=== PATIENT | female | born 1955 | race American Indian/Alaskan Native ===

== ENCOUNTER 2017-02-09 09:14 | Outpatient (CLI) | payer OTHER ==
--- NOTE | 2017-02-09 10:21 | Mammography Report ---
BILATERAL MAMMOGRAM: FINDINGS: There are scattered fibroglandular densities (approximately 25%-50% glandular). No mass, distortion, suspicious calcification, or skin change is seen. No significant change when compared to prior exams in November 2015 and February 2014. CAD was utilized. IMPRESSION: Negative mammogram. There is no mammographic evidence of malignancy. RECOMMENDATION: Follow-up per ACS guidelines. BI-RADS CATEGORY: 1 = Negative ACR BI-RADS MAMMOGRAPHIC CODES: 0 = Needs additional imaging evaluation; 1 = Negative; 2 = Benign; 3 = Probably benign; 4 = Suspicious; 5 = Malignant; 6 = Known biopsy-proven malignancy COMMENT: 1. Dense breast tissue, i.e., adenosis, fibrocystic changes, etc., may obscure an underlying neoplasm. 2. Approximately 10% of cancers are not detected with mammography. 3. A negative mammography report should not delay biopsy if a clinically suspicious mass is present. COMMENT: Patient follow-up letters are generated in [employer].
== END 2017-02-09 09:15 | disposition home or self-care (01) ==
LOC: SPVWC 09:14
PROVIDERS: ATTEND Obstetrics & Gynecology
DX: Z12.31 Encounter for screening mammogram for malignant neoplasm of breast (principal)
CPT/HCPCS: 77067; G0202

== ENCOUNTER 2018-09-28 07:30 | Inpatient (IN) | payer OTHER ==
[2018-10-19] MEDS ORDERED: FLAGYL 500 MG/100 ML 500 MG/100 ML BAG IV NR ×2 (06:00→07:00)
[2018-10-19] MEDS ORDERED: ANCEF/STERILE WATER 2 GM/20 ML IV NR (06:00)
[2018-10-19] MEDS ORDERED: REGLAN IV PRN (06:43)
[2018-10-19] MEDS ORDERED: APRESOLINE IV PRN (06:43)
[2018-10-19] MEDS ORDERED: ZOFRAN IV PRN ×2 (06:43→09:37)
[2018-10-19] MEDS ORDERED: NORCO PO PRN (06:43)
[2018-10-19] MEDS ORDERED: MORPHINE IV PRN (06:43)
[2018-10-19] MEDS ORDERED: LOVENOX SUB-Q NR (07:00)
[2018-10-19] MEDS ORDERED: ANCEF/STERILE WATER 2 GM/20 ML 2 GM/20 ML SYRINGE IV NR (07:00)
[2018-10-19] MEDS ORDERED: TRANSDERM-SCOP TD SCH (07:00)
[2018-10-19] MEDS ORDERED: SUBLIMAZE IV PRN (09:37)
--- NOTE | 2018-10-19 09:38 | Anesthesia Day of Surgery ---
Anesthesia Day of Surgery - Day of Surgery Patient Examined: Yes Patient H&P Reviewed: Yes Patient is NPO: Yes
--- NOTE | 2018-10-19 09:46 | Anesthesia Consultation ---
Anesthesia Consult and Med Hx Date of service: 10/19/18 - Airway Anesthetic Teeth Evaluation: Chipped, Bridges ROM Head & Neck: Adequate Mental/Hyoid Distance: Adequate Mallampati Class: Class II Intubation Access Assessment: Good - Pre-Operative Health Status ASA Pre-Surgery Classification: ASA3 Proposed Anesthetic Plan: General - Pulmonary Hx Smoking: Yes (quit 1989) - Cardiovascular System Hx Hypertension: Yes (NST [id number]; EF .74) Hx Heart Murmur: Yes - Central Nervous System Hx Psychiatric Problems: Yes (Anxiety) - Gastrointestinal Hx Gastroesophageal Reflux Disease: Yes - Other Systems Hx Cancer: Yes (at the age 28, cervical CA, s/p hysterectomy, chemo, radiation)
[2018-10-19] MEDS ORDERED: LOVENOX SUB-Q SCH (10:00)
[2018-10-19] MEDS ORDERED: VERSED IV NR (10:00)
[2018-10-19] MEDS: LACTATED RINGERS 1,000 ML IV SCH ×2 (10:20→17:08)
[2018-10-19] MEDS ORDERED: SUBLIMAZE ONE (10:57)
[2018-10-19] MEDS ORDERED: DIPRIVAN 10 MG/ML IV ONE (10:57)
[2018-10-19] MEDS ORDERED: MARCAINE-EPI 0.5%-1:200,000 INFILTRATI ONE ×2 (11:23→13:15)
[2018-10-19] MEDS ORDERED: XYLOCAINE 1% 20 mL ONE (11:23)
[2018-10-19] MEDS ORDERED: ZEMURON IV ONE (12:29)
[2018-10-19] MEDS ORDERED: ROBINUL ONE (12:29)
[2018-10-19] MEDS ORDERED: DECADRON ONE (12:29)
[2018-10-19] MEDS ORDERED: QUELICIN ONE (12:29)
[2018-10-19] MEDS ORDERED: ZOFRAN ONE (12:29)
[2018-10-19] MEDS ORDERED: XYLOCAINE 1% 20 mL INFILTRATI ONE (13:15)
[2018-10-19] MEDS ORDERED: NACL 0.9% IR ONE ×2 (13:16)
[2018-10-19] MEDS ORDERED: BRIDION IV ONE (13:27)
[2018-10-19] MEDS: DILAUDID IV PRN ×3 (14:10→21:25)
--- NOTE | 2018-10-19 17:09 | Post Anesthesia Evaluation ---
- Post Anesthesia Evaluation Patient Participated: Yes Airway Patent: Yes Stable Respiratory Function: Yes Nausea/Vomiting: No Temp > 96.8F: Yes Pain Manageable: Yes Adequeate Hydration: Yes Anesthesia Complications: No Block Receding Appropriately: Yes
--- NOTE | 2018-10-19 17:29 | Operative Report ---
SURGEON: Jaycob Doyle MD RING FACER: Vanessa Carrillo MD Fellow; Jasmyn Osuna MD [facility]. PREOPERATIVE DIAGNOSIS: Morbid obesity. POSTOPERATIVE DIAGNOSES: 1. Extensive adhesions. 2. Morbid obesity. OPERATION PROCEDURE: 1. Laparoscopic lysis of adhesions, greater than 30 minutes. 2. Laparoscopic sleeve gastrectomy. 3. Laparoscopic hiatal hernia repair. 4. Repair of serosal injury ANESTHESIA: General endotracheal anesthesia. SPECIMENS: Gastric remnant. COMPLICATIONS: Intraoperative serosal injury requiring repair. BLEEDING: Less than 15 mL. INDICATIONS: The patient is a 63-year-old female with a history of morbid obesity. She has had multiple open abdominal operations. She has undergone a preoperative bariatric workup and presents for her planned operation. The risks, complications and alternatives were discussed with the patient and informed consent was obtained. DESCRIPTION OF PROCEDURE: The patient was brought to the operating room where she was placed in the supine position and underwent general endotracheal intubation. She was prepped and draped in the usual sterile fashion and a timeout was called to ensure proper patient, indication, and operation. She received preoperative antibiotics and DVT prophylaxis. A small stab incision was made at the left upper quadrant and a Veress needle was inserted with insufflation pressure was achieved to 15 mmHg. Intra-abdominal access was gained via a 5 mm optical trocar from the left lateral side of the abdomen. On intra-abdominal view, there was no injury from the Veress needle. She was noted to have extensive adhesions to the anterior abdominal wall, localized mostly in the midline from a prior open exploratory laparotomy. Under direct visualization, a 5 mm trocar was placed in the right lateral quadrant and left lateral quadrant. The adhesions were taken down using a LigaSure device. Once they were cleared, a 15 mm trocar was placed in the supraumbilical region. On closer inspection, there was noted to be a thermal injury of the small bowel that was adherent to the anterior abdominal wall. This was not a gdmmfzi-huw-uyzexma injury. Adhesiolysis took greater than 30 minutes. After clearing enough for exposure, an additional 5 mm trocar was placed in the subxiphoid place and the liver retractor was inserted. The patient was then repositioned in reverse Trendelenburg. A hiatal dissection was first done revealing a small hiatal hernia. The angle of His was dissected free and the gastroesophageal fat pad was taken off. After this, the greater curvature of the stomach was from the gastrocolic ligament using the LigaSure device. There was minor bleeding on the greater omental side at the lower portion of the greater curvature. This was controlled with the LigaSure device. The stomach was then fully mobilized and to include the short gastrics as well as posteriorly. An anterior cruroplasty was done with 0 Surgidac suture and then Anesthesia placed a 40-Telugu bougie with my nurse's assistant and a sleeve gastrectomy was performed utilizing several staple loads. The insufflation pressures were decreased and the staple line was cauterized after each fire load for hemostasis. After this, the bougie was removed and the staple line was reinspected again for hemostasis. Next, the left lateral port was exchanged for a 12 mm trocar and the thermal injury to the small bowel was repaired with a 0 Surgidac suture in interrupted fashion. After this, the gastric remnant was removed from the umbilical port site. The fascia was closed with #1 PDS using a Gabino-Abimael under direct visualization. All the air was desufflated. The ports were removed. Additional local was injected and the wounds were closed with 4-0 Monocryl. Sterile bandages were placed over top. The patient tolerated the procedure with no immediate complications and was extubated and left the operating room in stable condition. Counts were correct. FINDINGS: Small hiatal hernia. Extensive adhesions of the omentum and small bowel to the anterior abdominal wall. A small thermal injury to the small bowel, repaired with a suture. JOB# [id number] MARGIE/CAT MCCLAIN
[2018-10-19] MEDS: MYLICON PO PRN (18:21)
[2018-10-19] MEDS: TORADOL IV SCH (20:28)
[2018-10-20] MEDS: DILAUDID IV PRN (01:02)
[2018-10-20] MEDS: TORADOL IV SCH ×3 (02:25→08:11)
[2018-10-20 04:42] LABS: Basophils % (Auto) 0.3 % (0.0-1.8); Hematocrit 29.9 % (30.3-42.9); Hemoglobin 10.1 gm/dl (10.1-14.3); Lymphocytes # (Auto) 2.6 K/mm3 (1.2-5.4); Lymphocytes % (Auto) 21.4 % (13.4-35.0); Mean Corpuscular HGB Conc 34 % (30-34); Mean Corpuscular Volume 85 fl (79-97); Monocytes # (Auto) 0.6 K/mm3 (0.0-0.8); Monocytes % (Auto) 5.3 % (0.0-7.3); Platelet Count 324 K/mm3 (140-440); Red Blood Count 3.53 M/mm3 (3.65-5.03); Red Cell Distribution Width 14.7 % (13.2-15.2)
[2018-10-20 04:53] LABS: BUN/Creatinine Ratio 17; Blood Urea Nitrogen 10 mg/dL (7-17); Calcium 8.7 mg/dL (8.4-10.2); Hemolysis Index 22
[2018-10-20] MEDS: MYLICON PO PRN (06:18)
--- NOTE | 2018-10-20 06:53 | Discharge Summary ---
Providers - Providers Date of Admission: 10/19/18 07:19 Date of discharge: 10/20/18 Attending physician: SEKOU DOYLE Primary care physician: LISSA CHAUDHRY Hospitalization Reason for admission: postop Condition: Good Procedures: 10/19/18: Laparoscopic sleeve gastrectomy Hospital course: 63F admitted after her operation for routine postop care. She was managed on the general surgical floor, ambulated, tolerated a CLD, pain under control, and was dc home in stable condition. Disposition: DC-01 TO HOME OR SELFCARE Core Measure Documentation - Palliative Care Palliative Care/ Comfort Measures: Not Applicable - Core Measures Any of the following diagnoses?: none - VTE Discharge Requirements Deep Vein Thrombosis/Pulmonary Embolism Present on Admission: No - Acute OR Discharge Requirements Aspirin at discharge: Yes - Heart Failure Discharge Requirements ЕЛЕНА/ARB for LVSD if EF <40%: Not Applicable - Stroke Discharge Requirements Statin for LDL = or >70 mg/dl on DC: Not Applicable Exam - Physical Exam Narrative exam: Gen: AAO, NAD Heart: RRR Lungs: CTAB Abd: MO, soft, NT, ND. Bandages c/d/i. Ext: No LE edema - Constitutional Vitals: Temp Pulse Resp BP Pulse Ox 98.8 F 79 18 123/57 99 10/20/18 04:11 10/20/18 04:11 10/20/18 04:11 10/20/18 04:11 10/20/18 04:11 Plan Diet: clear liquids Wound: keep clean and dry Special Instructions: no heavy lifting Additional Instructions: Fu as scheduled with Dr Doyle Follow up with: LISSA CHAUDHRY MD [Primary Care Provider] - 7 Days
[2018-10-20] MEDS ORDERED: LOVENOX SUB-Q SCH (10:00)
[2018-10-20] MEDS ORDERED: COZAAR PO SCH (10:00)
[2018-10-20] MEDS ORDERED: HCTZ PO SCH (10:00)
[2018-10-20 12:20] VITALS: BP 101/55
== END 2018-10-20 13:00 | disposition home or self-care (01) | DRG 621 ==
LOC: 3A 10-19 07:19 → 3B-SURG 10-19 14:58
PROVIDERS: ADMIT Specialist; ATTEND Specialist
PROC: 0DB64Z3 Excision of Stomach, Percutaneous Endoscopic Approach, Vertical (ICD-10-PCS; principal; 2018-10-19)
PROC: 0DNW4ZZ Release Peritoneum, Percutaneous Endoscopic Approach (ICD-10-PCS; 2018-10-19)
PROC: 0DN84ZZ Release Small Intestine, Percutaneous Endoscopic Approach (ICD-10-PCS; 2018-10-19)
PROC: 0BQT4ZZ Repair Diaphragm, Percutaneous Endoscopic Approach (ICD-10-PCS; 2018-10-19)
PROC: 0DQ80ZZ Repair Small Intestine, Open Approach (ICD-10-PCS; 2018-10-19)
DX: E66.01 Morbid (severe) obesity due to excess calories (principal); I10 Essential (primary) hypertension; M54.2 Cervicalgia; M54.9 Dorsalgia, unspecified; F41.9 Anxiety disorder, unspecified; I49.9 Cardiac arrhythmia, unspecified; K66.0 Peritoneal adhesions (postprocedural) (postinfection); K21.9 Gastro-esophageal reflux disease without esophagitis; K44.9 Diaphragmatic hernia without obstruction or gangrene; Z90.49 Acquired absence of other specified parts of digestive tract; Z82.49 Family history of ischemic heart disease and other diseases of the circulatory system; Z83.3 Family history of diabetes mellitus; Z82.61 Family history of arthritis; Z82.3 Family history of stroke; Z81.8 Family history of other mental and behavioral disorders; Z92.3 Personal history of irradiation; Z92.21 Personal history of antineoplastic chemotherapy; Z85.41 Personal history of malignant neoplasm of cervix uteri; Z86.73 Personal history of transient ischemic attack (TIA), and cerebral infarction without residual deficits; Z68.42 Body mass index [BMI] 45.0-49.9, adult; Y93.89 Activity, other specified; Y99.8 Other external cause status
CPT/HCPCS: 36415; 80048; 85025; 88307; G0378; A4217; J0330; J0690; J1100; J1170; J1650; J1885; J2250; J2405; J2704; J3010; J7120

== ENCOUNTER 2018-10-12 06:05 | Day surgery (SDC) | payer OTHER ==
--- NOTE | 2018-10-11 12:19 | Anesthesia Consultation ---
Anesthesia Consult and Med Hx Date of service: 10/11/18 - Airway Anesthetic Teeth Evaluation: Chipped (upper back), Caps, Partials (upper left, cemented in) ROM Head & Neck: Adequate Mental/Hyoid Distance: Adequate Mallampati Class: Class III Intubation Access Assessment: Possibly Difficult - Pre-Operative Health Status ASA Pre-Surgery Classification: ASA3 Proposed Anesthetic Plan: General, MAC - Pulmonary Hx Smoking: Yes (quit 1989) - Cardiovascular System Hx Hypertension: Yes - Central Nervous System Hx Back Pain: Yes (hips, knees arthritis) - Gastrointestinal Hx Gastroesophageal Reflux Disease: Yes - Other Systems Hx Cancer: Yes (at the age 28, cervical CA, s/p hysterectomy, chemo, radiation) Hx Obesity: Yes (Morbid obesity)
[2018-10-12] MEDS ORDERED: NACL 0.9% 1000 ML 1,000 ML IV SCH (08:00)
--- NOTE | 2018-10-12 08:02 | Anesthesia Day of Surgery ---
Anesthesia Day of Surgery - Day of Surgery Patient Examined: Yes Patient H&P Reviewed: Yes Patient is NPO: Yes
[2018-10-12] MEDS ORDERED: VERSED IV ONE (08:08)
[2018-10-12] MEDS ORDERED: DIPRIVAN 10 MG/ML IV ONE (08:08)
[2018-10-12] MEDS ORDERED: WATER FOR IRRIG STERILE IR ONE (08:12)
[2018-10-12 09:01] VITALS: BP 102/59
--- NOTE | 2018-10-12 10:19 | Operative Report ---
SURGEON: Jaycob Doyle MD. PATTERNMAKER BENCH: Vanessa Carrillo MD PREOPERATIVE DIAGNOSES: 1. Morbid obesity. 2. Dyspepsia. POSTOPERATIVE DIAGNOSES: 1. Gastritis. 2. Mild duodenitis. PROCEDURE: Esophagogastroduodenoscopy. ANESTHESIA: MAC. COMPLICATIONS: None. SPECIMENS: None. BLEEDING: None. INDICATIONS: The patient is a 62-year-old female with a history of morbid obesity. She is here for a preoperative EGD in preparation for her weight loss surgery. Informed consent was obtained. DESCRIPTION OF PROCEDURE: The patient was brought to the GI suite where she was placed in the left lateral decubitus position and underwent MAC anesthesia. A bite block was placed and a timeout was called. A standard adult gastroscope was inserted into the oropharynx, down the esophagus, into the stomach. The patient was noted to have mild gastritis of the antrum. On intubation for pylorus, she was noted to have a mild duodenitis in the duodenal bulb. The gastroscope was retroflexed. She had no hiatal hernia. With this, there were no other lesions. The air was suctioned out. The gastroscope was removed. The patient tolerated the procedure well with no immediate complications and was transferred to the PACU in stable condition. [facility] [place]# [id number] MARGIE/CAT
== END 2018-10-12 06:06 | disposition home or self-care (01) ==
LOC: GIO 06:05
PROVIDERS: ATTEND Specialist
DX: K29.70 Gastritis, unspecified, without bleeding (principal); K29.80 Duodenitis without bleeding; K21.9 Gastro-esophageal reflux disease without esophagitis; K30 Functional dyspepsia; E66.01 Morbid (severe) obesity due to excess calories; I10 Essential (primary) hypertension; M19.90 Unspecified osteoarthritis, unspecified site; Z85.41 Personal history of malignant neoplasm of cervix uteri; Z90.710 Acquired absence of both cervix and uterus; Z79.82 Long term (current) use of aspirin; Z79.899 Other long term (current) drug therapy; Z90.49 Acquired absence of other specified parts of digestive tract; Z68.41 Body mass index [BMI] 40.0-44.9, adult; Z98.890 Other specified postprocedural states; Z90.721 Acquired absence of ovaries, unilateral; Z87.891 Personal history of nicotine dependence
CPT/HCPCS: 43235; J2250; J2704; J7030